=== PATIENT | male | born 1990 | race Caucasian/White ===

== ENCOUNTER 2017-03-10 02:59 | Emergency (ER) | payer OTHER ==
[~2017-03-10] VITALS: Ht 172.7 cm; Wt 79.5 kg
[2017-03-10 03:08] VITALS: TEMP 36.7; Ht 172.7 cm; Wt 79.5 kg
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
[2017-03-10] MEDS ORDERED: HYDR25CA PO (03:32)
[2017-03-10] MEDS ORDERED: PALI156I INJ (03:32)
[2017-03-10] MEDS ORDERED: PROP20TA67 PO (03:33)
[2017-03-10 03:34] LABS: HEMATOCRIT 40.5 % (42-52); MEAN CELL VOLUME 82.2 fL (80-100); MEAN CORPUSCULAR HEMOGLOBIN 27.2 pg (25-34); MEAN CORPUSCULAR HGB CONC 33.1 g/dl (32-36); MEAN PLATELET VOLUME 10.3 fL (7.4-10.4); PLATELET COUNT 242 K/uL (130-400); RED BLOOD COUNT 4.93 M/uL (4.7-6.1); WHITE BLOOD COUNT 9.57 K/uL (4.8-10.8)
[2017-03-10 03:56] LABS: ALT/SGPT 16 U/L (12-78); AST/SGOT 16 U/L (15-37); BLOOD UREA NITROGEN 9 mg/dl (7-18); CALCIUM 8.8 mg/dl (8.5-10.1); CARBON DIOXIDE 26 mmol/L (21-32); CHLORIDE 103 mmol/L (98-107); CREATININE 0.81 mg/dl (0.60-1.40); GLUCOSE 99 mg/dl (70-99); POTASSIUM 3.7 mmol/L (3.5-5.1); SODIUM 138 mmol/L (136-145)
[2017-03-10 03:58] LABS: ALKALINE PHOSPHATASE 77 U/L (45-117)
[2017-03-10] MEDS ORDERED: CEPHALEXIN MONOHYDRATE 250 MG CAP PO ONE (04:45)
[2017-03-10] MEDS ORDERED: CEPH500C2 PO (04:45)
[2017-03-10 04:59] LABS: URINE APPEARANCE CLEAR (CLEAR); URINE BILIRUBIN NEG (NEG); URINE COLOR YELLOW; URINE NITRITE NEG (NEG); URINE PH 5.5 (4.5-7.5); URINE SPECIFIC GRAVITY 1.012 (1.000-1.030); UROBILINOGEN NEG (NEG)
[2017-03-10 05:15] LABS: MANUAL MICROSCOPIC REQUIRED? NO; REVIEW REQ? NO
[2017-03-10 06:01] VITALS: BP 135/95; PULSE 101; O2SAT 97
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
== END 2017-03-10 06:01 | disposition home or self-care (01) ==
LOC: EDBD 03:02 → C.EDA 03:02
DX: S02.92XA Unspecified fracture of facial bones, initial encounter for closed fracture (principal); T51.91XA Toxic effect of unspecified alcohol, accidental (unintentional), initial encounter; Y09 Assault by unspecified means; Z79.899 Other long term (current) drug therapy